=== PATIENT | female | born 1965 | race Caucasian/White ===

== ENCOUNTER → 2017-09-27 | Outpatient (CLI) | payer OTHER | END | disposition home or self-care (01) | LOC: RAH 10:58 | PROVIDERS: ATTEND Internal Medicine | DX: S92.142A Displaced dome fracture of left talus, initial encounter for closed fracture (principal); M79.89 Other specified soft tissue disorders; M95.8 Other specified acquired deformities of musculoskeletal system; X58.XXXA Exposure to other specified factors, initial encounter; Y93.89 Activity, other specified; Y92.89 Other specified places as the place of occurrence of the external cause; Y99.8 Other external cause status | CPT/HCPCS: 73610; 73630 ==

== ENCOUNTER → 2018-01-04 | Outpatient (CLI) | payer OTHER | END | disposition home or self-care (01) | LOC: RAH 07:38 | PROVIDERS: ATTEND Internal Medicine | DX: M48.061 Spinal stenosis, lumbar region without neurogenic claudication (principal) | CPT/HCPCS: 72148 ==